=== PATIENT | male | born 1945 | race African-American/Black ===

== ENCOUNTER 2020-02-19 12:05 | Inpatient (IN) | payer MEDICARE, BC ==
[~2020-02-19] VITALS: Ht 170.2 cm; Wt 83.9 kg
--- NOTE | ~2020-02-19 | PROC ---
[address] [address] PROCEDURE REPORT Name: CARLOS MARY Room: [address] IN .R.#: [id number] Admission: 02/19/20 Attend Phys: Twan Guerra Discharge: 02/24/20 Date of : 41 Report #: [id number] THIS REPORT FOR: //name// cc: [facility] - Clinic physician unknown [facility] - Clinic physician unknown ~ For GI report, please see the Provation report in Perceptive 7 content. By: 1322Medical Records Staff [facility] /MATT
[2020-02-19 12:10] VITALS: BP 158/71
[2020-02-19] MEDS ORDERED: TIZANIDINE HCL2 M1 PO (12:14)
[2020-02-19] MEDS ORDERED: CELEBREX50 MG PO (12:14)
[2020-02-19] MEDS ORDERED: SILDENAFIL CIT100 MG PO (12:15)
[2020-02-19] MEDS ORDERED: NORVASC10 MG PO (12:15)
[2020-02-19] MEDS ORDERED: LIPITOR10 MG PO (12:15)
[2020-02-19 12:50] LABS: URINE BILIRUBIN NEGATIVE (Negative); URINE BLOOD 1+ (Negative); URINE CLARITY CLEAR; URINE COLOR YELLOW; URINE GLUCOSE-RANDOM NEGATIVE (Negative); URINE KETONES TRACE (Negative); URINE LEUKOCYTES-REFLEX TRACE (Negative); URINE NITRITE-REFLEX NEGATIVE (Negative); URINE PROTEIN 1+ (Negative); URINE SPECIFIC GRAVITY 1.015 (1.005-1.030)
[2020-02-19 12:50] LABS: HEMATOCRIT 33.9 % (42.0-52.0); HEMOGLOBIN 11.1 gm/dL (14.0-18.0); MCH 27.9 pg (26.0-34.0); MCHC 32.7 g/dL (28.0-37.0); MCV 85.2 fL (80.0-100.0); MPV 8.1 fl. (7.2-11.1); NUCLEATED RBCS 0 /100WBC; PLATELET COUNT* 525 thou/uL (150-400); RBC 3.98 mil/uL (4.50-6.00); RDW-CV 14.7 % (10.5-14.5); WBC 28.3 thou/uL (4.0-11.0)
[2020-02-19 12:56] LABS: AMORPHOUS URATES Few /LPF (None Seen); BACTERIA-REFLEX 1-9 Few /HPF (None Seen); FINE GRANULAR CASTS 0-3 Few /LPF (None Seen); HYALINE CASTS 4-10 Moderate /LPF (None Seen); MUCUS 4-6 Moderate strn/LPF (None Seen); SQUAMOUS 4-10 Moderate /LPF (0-3); URINE RBC 3-10 Few /HPF (0-2); URINE WBC-REFLEX 6-15 Few /HPF (0-5)
[2020-02-19 13:06] LABS: CALCIUM 8.3 mg/dL (8.5-10.1); CREATININE 1.6 mg/dL (0.6-1.3); POTASSIUM 4.7 mmol/L (3.5-5.1)
[2020-02-19 13:10] LABS: ABSOLUTE LYMPHOCYTES 1.7 thou/uL (0.8-5.3); ABSOLUTE MONOCYTES 2.3 thou/uL (0.0-1.2); ABSOLUTE NEUTROPHILS 24.3 thou/uL (1.6-8.1); ANISOCYTOSIS 1+; LIPASE 117 U/L (73-393); PLATELET ESTIMATE INCREASED; POIKILOCYTOSIS 1+
[2020-02-19 13:11] LABS: ALBUMIN 1.8 g/dL (3.4-5.0); TOTAL BILIRUBIN 0.8 mg/dL (<0.1-1.0); TOTAL PROTEIN 7.5 g/dL (6.4-8.2)
--- NOTE | 2020-02-19 17:18 | EKG ---
[place] [address] ELECTROCARDIOGRAM REPORT Name: CARLOS MARY Room: [place] [address] [facility]#: [id number] Admission: 02/19/20 Attend Phys: Rubens Hung Discharge: Date of : 41 Date of Service: 02/19/20 1247 Report #: [id number] THIS REPORT FOR: //name// [facility] ED Test Date: 2020-02-19 Test Time: 12:47:21 Pat Name: USMAN GONZALEZ Department: Room: [facility] Gender: M Cyber Forensics Analyst: DSJarad : 1945 Requested By: Danyel Kasper Order Number: [id number] MD: Ede Massey Measurements Intervals Haddock Rate: 95 P: 35 AL: 175 QRS: 30 QRSD: 80 T: 32 QT: 339 QTc: 426 Interpretive Statements Sinus rhythm Abnormal R-wave progression, early transition No previous ECG available for comparison Electronically Signed On 02-19-2020 17:18:20 [employer] by Ede Massey [email or web address] <ELECTRONICALLY SIGNED> By: Ede Massey MD, FACC 02/19/20 1718 1247 1247 Ede Massey MD, [facility] /EPI
[2020-02-19 18:46] VITALS: BP 138/69
[2020-02-19 22:45] VITALS: BP 155/65
[2020-02-20] VITALS (7 sets, daily range): BP systolic 109–154; BP diastolic 66–79
[2020-02-21] VITALS: BP 132/70
[2020-02-21 04:00] VITALS: BP 134/62
[2020-02-21 08:00] VITALS: BP 152/82
[2020-02-21 12:00] VITALS: BP 116/58
--- NOTE | 2020-02-21 14:26 | CON ---
[address] [address] CONSULTATION Name: CARLOS MARY Room: [address] IN .R.#: [id number] Admission: 02/19/20 Attend Phys: Twan Guerra Discharge: Date of : 41 Report #: [id number] THIS REPORT FOR: //name// cc: [facility] - [facility] physician unknown [facility] - [facility] physician unknown ~ DATE OF SERVICE: 02/21/2020 The patient cannot remember who his PCP is. Please note at the time of this dictation, the patient was seen and physically examined by myself. REASON FOR CONSULTATION: Abnormal CT findings of the first part of the duodenum. HISTORY OF PRESENT ILLNESS: This 74-year-old male who came to the Emergency Room initially for back pain, which had been worsening over the last 2 weeks. In talking with the patient, he states his Celebrex was no longer working, so he was also taking some ibuprofen. He cannot remember how many or how often he was taking it, but he was because the Celebrex was not working. He had a CT scan that was done that showed circumferential wall thickening and some fat stranding in the first and second portion of the duodenum. The patient states he has had an EGD and colonoscopies done at [facility], but he does not recall when the last one was. He denies any nausea or vomiting. He has taken medicine for his acid reflux in the past, but he is not complaining of any at this particular time. He does have ongoing issues with constipation. He states that he has a hard time trying to evacuate his bowels and he will take random medications at home to help his bowels move. ALLERGIES: No known drug allergies. MEDICATIONS FROM HOME: Include tizanidine, Celebrex, amlodipine, Cialis and atorvastatin. PAST MEDICAL HISTORY: Hypertension, hyperlipidemia, history of prostate cancer. PAST SURGICAL HISTORY: None. FAMILY HISTORY: Negative for any GI or female cancers. SOCIAL HISTORY: Denies any alcohol, tobacco or illegal drug use. REVIEW OF SYSTEMS: Twelve-point review of systems is essentially negative except what [place] [address] CONSULTATION Name: CARLOS MARY Room: [address] IN [facility]#: [id number] Admission: 02/19/20 Attend Phys: Twan Guerra Discharge: Date of : 41 Report #: [id number] PHYSICAL EXAMINATION: VITAL SIGNS: Temperature 36.9, pulse 92, respirations 18, blood pressure 152/82. HEART: Regular rate and rhythm. LUNGS: Diminished, but clear. ABDOMEN: Soft, positive bowel sounds in all 4 quadrants with no masses or tenderness noted. LABORATORY DATA: Hemoglobin 11.1, white count 28.3, platelets 525. BUN is 41, creatinine 1.6. GFR is 42, it was noted positive for UTI. CT scan shows circumferential wall thickening and fat stranding in the first and second portion of the duodenum. IMPRESSION: 1. Abnormal CT. 2. Nonsteroidal anti-inflammatory drug use both ibuprofen and Celebrex. 3. Constipation. 4. Leukocytosis. 5. Sepsis urinary tract infection. PLAN: 1. EGD tomorrow with Dr. Jacinto to evaluate the first and second portion of the duodenum. 2. We will stop the Celebrex. 3. Senokot b.i.d. 4. Further recommendations to be made once the procedure has been performed. Thank you for allowing us to participate in this patient's care. Please do not hesitate to call with any questions in regard to this consult. <ELECTRONICALLY SIGNED> By: Dirk Jacinto DO 02/21/20 1426 1154 1217Dirk Jacinto DO /nt
[2020-02-21 19:50] VITALS: BP 115/58
[2020-02-22] VITALS: BP 119/65
[2020-02-22 04:10] VITALS: BP 138/68
[2020-02-22 04:24] LABS: HEMATOCRIT 30.9 % (42.0-52.0); HEMOGLOBIN 9.7 gm/dL (14.0-18.0); MCH 27.2 pg (26.0-34.0); MCHC 31.5 g/dL (28.0-37.0); MCV 86.5 fL (80.0-100.0); MPV 8.2 fl. (7.2-11.1); RBC 3.57 mil/uL (4.50-6.00); RDW-CV 15.5 % (10.5-14.5); WBC 21.5 thou/uL (4.0-11.0)
[2020-02-22 04:52] LABS: ALBUMIN 1.1 g/dL (3.4-5.0); CALCIUM 8.2 mg/dL (8.5-10.1); CREATININE 1.3 mg/dL (0.6-1.3); MAGNESIUM 2.8 mg/dL (1.8-2.4); POTASSIUM 4.7 mmol/L (3.5-5.1); TOTAL BILIRUBIN 0.9 mg/dL (<0.1-1.0); TOTAL PROTEIN 6.3 g/dL (6.4-8.2)
[2020-02-22 05:30] LABS: % SATURATION 20 % (20-39); IRON 16 ug/dL (50-175)
[2020-02-22 11:49] VITALS: BP 141/72
[2020-02-22 20:26] VITALS: BP 117/63
[2020-02-23] VITALS: BP 132/77
[2020-02-23 04:29] LABS: HEMATOCRIT 31.9 % (42.0-52.0); HEMOGLOBIN 10.2 gm/dL (14.0-18.0); MCH 27.3 pg (26.0-34.0); MCHC 31.9 g/dL (28.0-37.0); MCV 85.6 fL (80.0-100.0); NUCLEATED RBCS 0 /100WBC; PLATELET COUNT* 331 thou/uL (150-400); RBC 3.72 mil/uL (4.50-6.00); RDW-CV 15.5 % (10.5-14.5); WBC 18.4 thou/uL (4.0-11.0)
[2020-02-23 05:01] LABS: ALBUMIN 1.2 g/dL (3.4-5.0); CALCIUM 8.1 mg/dL (8.5-10.1); CREATININE 1.3 mg/dL (0.6-1.3); MAGNESIUM 2.5 mg/dL (1.8-2.4); TOTAL BILIRUBIN 0.5 mg/dL (<0.1-1.0)
[2020-02-23 07:20] LABS: ABSOLUTE MONOCYTES 0.4 thou/uL (0.0-1.2)
[2020-02-23 07:21] LABS: PLATELET ESTIMATE ADEQUATE; TARGET CELLS 1+
[2020-02-23 07:22] LABS: MICROCYTES 1+
[2020-02-23 08:00] VITALS: BP 150/79
[2020-02-23 12:00] VITALS: BP 153/83
--- NOTE | 2020-02-23 13:04 | 2DMMODE ---
[place] [address] 2 D/M-MODE ECHOCARDIOGRAM Name: USMANCARLOS Saniya Room: [address] ADM IN [place]#: [id number] Admission: 02/19/20 Attend Phys: Rubens Hung Discharge: Date of : 41 Date of Service: 02/23/20 1304 Report #: [id number] THIS REPORT FOR: cc: [facility] - Clinic physician unknown [facility] - Clinic physician unknown Marcell Helton MD [facility] ~ APPROVED REPORT Study performed: 02/23/2020 10:47:06 EXAM: Comprehensive 2D, Doppler, and color-flow Echocardiogram Patient Location: In-Patient Room #: 230 Status: routine BSA: 1.96 HR: 84 bpm BP: 150/79 mmHg Rhythm: NSR Other Information Study Quality: Good Indications Sepsis 2D Dimensions IVSd: 10.17 (7-11mm) LVOT Diam: 19.87 (18-24mm) LVDd: 42.60 mm PWd: 7.77 (7-11mm) Ascending Ao: 30.70 (22-36mm) LVDs: 28.00 (25-40mm) Aortic Root: 30.28 mm Volumes Left Atrial Volume (Systole) LA ESV Index: 24.00 mL/m2 Aortic Valve AoV Peak Brian.: 1.83 m/s AO Peak Gr.: 13.44 mmHg LVOT Max P.04 mmHg AO Mean Gr.: 6.32 mmHg LVOT Mean P.58 mmHg LVOT Max V: 1.42 m/s AO V2 VTI: 31.17 cm LVOT Mean V: 0.86 m/s DARRON (VTI): 2.55 cm2 LVOT V1 VTI: 25.58 [place] [address] 2 D/M-MODE ECHOCARDIOGRAM Name: CARLOS MARY Room: [address] IN ..#: [id number] Admission: 02/19/20 Attend Phys: Rubens Hung Discharge: Date of : 41 Date of Service: 02/23/20 1304 Report #: [id number] Mitral Valve E/A Ratio: 1.01 MV Decel. Time: 219.63 ms MV E Max Brian.: 1.12 m/s MV PHT: 63.69 ms MVA (PHT): 3.45 cm2 TDI E/Lateral E': 7.47 E/Medial E': 10.18 Medial E' Brian.: 0.11 m/s Lateral E' Brian.: 0.15 m/s Pulmonary Valve PV Peak Brian.: 1.22 m/s PV Peak Gr.: 5.98 mmHg Tricuspid Valve RAP Estimate: 5.00 mmHg TR Peak Gr.: 25.41 mmHg RVSP: 30.00 mmHg PA Pressure: 30.00 mmHg Left Ventricle The left ventricle is normal size. There is normal LV segmental wall motion. There is normal left ventricular wall thickness. Left ventricular systolic function is normal. The left ventricular ejection fraction is within the normal range. LVEF is 60-65%. Right Ventricle The right ventricle is normal size. The right ventricular systolic function is normal. Atria The left atrium size is normal. The right atrium size is normal. Aortic Valve Mild aortic valve sclerosis. No aortic regurgitation is present. There is no aortic valvular stenosis. Mitral Valve The mitral valve is normal in structure. Mild mitral regurgitation. No evidence of mitral valve stenosis. Tricuspid Valve The tricuspid valve is normal in structure. Mild tricuspid regurgitation. estimated pa pressure 35 [place] [address] 2 D/M-MODE ECHOCARDIOGRAM Name: CARLOS MARY Room: [address] IN [facility]#: [id number] Admission: 02/19/20 Attend Phys: Rubens Hung Discharge: Date of : 41 Date of Service: 02/23/20 1304 Report #: [id number] Pulmonic Valve The pulmonary valve is normal in structure. Mild pulmonic regurgitation. Great Vessels The aortic root is normal in size. IVC is normal in size and collapses >50% with inspiration. Pericardium There is no pericardial effusion. <Conclusion> LVEF is 60-65%. Mild aortic valve sclerosis. Mild mitral regurgitation. Mild tricuspid regurgitation. estimated pa pressure 35 mm Hg <ELECTRONICALLY SIGNED> By: Marcell Helton MD, FACC 02/23/20 1304 1304 130 Marcell Helton MD, FACC /INF
[2020-02-23 16:00] VITALS: BP 151/73
[2020-02-23 19:50] VITALS: BP 153/78
[2020-02-24 00:09] VITALS: BP 138/69
[2020-02-24 05:12] VITALS: BP 137/67
[2020-02-24 08:45] VITALS: BP 141/67
[2020-02-24 09:40] LABS: ABSOLUTE LYMPHOCYTES 1.3 thou/uL (0.8-5.3); ABSOLUTE MONOCYTES 0.6 thou/uL (0.0-1.2); ABSOLUTE NEUTROPHILS 16.8 thou/uL (1.6-8.1); BASOPHILS 0.1 %; EOSINOPHILS 0.1 %; HEMATOCRIT 31.5 % (42.0-52.0); HEMOGLOBIN 9.9 gm/dL (14.0-18.0); MCH 26.6 pg (26.0-34.0); MCHC 31.6 g/dL (28.0-37.0); MCV 84.3 fL (80.0-100.0); MONOCYTES 3.4 %; MPV 8.3 fl. (7.2-11.1); NUCLEATED RBCS 0 /100WBC; PLATELET COUNT* 306 thou/uL (150-400); POLYS 89.4 %; RBC 3.74 mil/uL (4.50-6.00); RDW-CV 14.9 % (10.5-14.5); WBC 18.8 thou/uL (4.0-11.0)
[2020-02-24 09:55] LABS: ALBUMIN 1.3 g/dL (3.4-5.0); CALCIUM 7.7 mg/dL (8.5-10.1); CREATININE 1.2 mg/dL (0.6-1.3); POTASSIUM 4.4 mmol/L (3.5-5.1); TOTAL BILIRUBIN 0.6 mg/dL (<0.1-1.0)
[2020-02-24 10:03] LABS: PREALBUMIN 8.5 mg/dL (18.0-35.7)
[2020-02-24 12:00] VITALS: BP 131/68
--- NOTE | 2020-02-27 07:36 | PATH ---
[address] [address] PATHOLOGY RPT PROCEDURE Name: CARLOS MARY Room: [address] IN ..#: [id number] Admission: 02/19/20 Date of : 41 Discharge: 02/24/20 Report #: [id number] Path Case #: [id number] [facility] Accession Number: [id number] . 01 Material submitted: . stomach - ANTRAL BIOPSIES FOR H-PYLORI FOR GASTRIC AND DUODENAL ULCERS . 01 Clinician provided ICD-10: A41.9 E43 . 01 Clinical history: . SEPSIS, UTI, BACK PAIN, ARF . 02 Diagnosis: Antral biopsies: - Moderate nonspecific chronic antral gastritis, negative for Helicobacter pylori organisms and dysplasia. (ALIYA:pit 02/26/2020) . Special stain: H. pylori immuno QTP 02/26/2020 1623 Local . 02 Electronically signed: . Elroy Yanez MD, Pathologist NPI- [id number] . 01 Gross description: . The specimen is received in formalin, labeled "Carlos Mary, antral biopsies" and consists of 2 fragments of pink-ceron tissue measuring 0.3 x 0.3 cm and 0.4 x 0.2 cm which are entirely submitted in A1. (SDY; 02/24/2020) SYU/SYU 02/24/2020 1014 Local . 02 Pathologist provided ICD-10: K29.50 . 02 CPT . 597969, L02274 Specimen Comment: A courtesy copy of this report has been sent to [phone] Specimen Comment: [phone] Specimen Comment: Report sent to / DR SIEGEL Performed at: [address] [id number] MD Samuel Mohr MD Phone: [phone] Performed at: [address] [address] PATHOLOGY RPT PROCEDURE Name: CARLOS MARY Room: [address] IN [facility]#: [id number] Admission: 02/19/20 Date of : 41 Discharge: 02/24/20 Report #: [id number] Path Case #: [id number] [address] [id number] MD Elroy Yanez MD Phone: [phone]
== END 2020-02-24 14:06 | disposition short-term general hospital (02) | DRG 871 ==
LOC: M.ERS 12:05 → M.TBA-ER 14:22 → M.2W 02-20 13:10
PROVIDERS: Family Medicine; Internal Medicine; Internal Medicine Gastroenterology; ADMIT Internal Medicine; ATTEND Internal Medicine
PROC: 0DB68ZX Excision of Stomach, Via Natural or Artificial Opening Endoscopic, Diagnostic (ICD-10-PCS; principal; 2020-02-22)
PROC: 0DB98ZX Excision of Duodenum, Via Natural or Artificial Opening Endoscopic, Diagnostic (ICD-10-PCS; principal; 2020-02-22)
DX: A41.01 Sepsis due to Methicillin susceptible Staphylococcus aureus (principal); E43 Unspecified severe protein-calorie malnutrition; N17.0 Acute kidney failure with tubular necrosis; K22.11 Ulcer of esophagus with bleeding; G03.9 Meningitis, unspecified; N12 Tubulo-interstitial nephritis, not specified as acute or chronic; B95.8 Unspecified staphylococcus as the cause of diseases classified elsewhere; K29.80 Duodenitis without bleeding; M25.531 Pain in right wrist; I10 Essential (primary) hypertension; E78.00 Pure hypercholesterolemia, unspecified; R31.9 Hematuria, unspecified; M54.5 Low back pain; K59.00 Constipation, unspecified; M47.896 Other spondylosis, lumbar region; E78.5 Hyperlipidemia, unspecified; K21.00 Gastro-esophageal reflux disease with esophagitis, without bleeding; K44.9 Diaphragmatic hernia without obstruction or gangrene; K26.9 Duodenal ulcer, unspecified as acute or chronic, without hemorrhage or perforation; K25.9 Gastric ulcer, unspecified as acute or chronic, without hemorrhage or perforation; R93.3 Abnormal findings on diagnostic imaging of other parts of digestive tract; Z20.828 Contact with and (suspected) exposure to other viral communicable diseases; Z85.46 Personal history of malignant neoplasm of prostate; Z79.899 Other long term (current) drug therapy; Z68.29 Body mass index [BMI] 29.0-29.9, adult